=== PATIENT | female | born 1965 | race Caucasian/White ===

== ENCOUNTER 2019-02-25 08:30 | Emergency (ER) | payer SELFPAY ==
[~2019-02-25] VITALS: Ht 167.6 cm; Wt 58.5 kg
[2019-02-25 09:18] LABS: BASOPHILS # (AUTO) 0.1 /CMM (0.0-0.2); BASOPHILS % (AUTO) 0.9 % (0.0-2.0); EOSINOPHILS % (AUTO) 3.5 % (0.0-6.0); HEMATOCRIT 40 % (33-45); HEMOGLOBIN 13.5 g/dL (11.5-14.8); LYMPHOCYTES # (AUTO) 1.1 /CMM (0.8-4.8); LYMPHOCYTES % (AUTO) 19.7 % (20.0-44.0); MEAN CORPUSCULAR HGB CONC 34 g/dl (31.0-36.0); MEAN CORPUSCULAR VOLUME 89 fL (82-100); MONOCYTES # (AUTO) 0.2 /CMM (0.1-1.30); MONOCYTES % (AUTO) 3.6 % (2.0-12.0); NEUTROPHILS # (AUTO) 3.9 /CMM (1.8-8.9); NEUTROPHILS % (AUTO) 72.3 % (43.0-81.0); PLATELET COUNT (AUTO) 233 /CMM (150-450); RED BLOOD CELL COUNT(AUTO) 4.48 MIL/uL (4.0-5.2); WHITE BLOOD COUNT (AUTO) 5.4 K/uL (4.3-11.0)
[2019-02-25 09:30] LABS: CALCIUM, SERUM 9.5 mg/dL (8.5-10.1); CARBON DIOXIDE 31 mmol/L (21-32); CHLORIDE 106 mmol/L (98-107); CREATININE 0.7 mg/dL (0.6-1.3); GLUCOSE 103 mg/dL (74-106); POTASSIUM 3.8 mmol/L (3.5-5.1); SODIUM SERUM 143 mmol/L (136-145); UREA NITROGEN, BLOOD 16 mg/dL (7-18)
[2019-02-25] MEDS ORDERED: IV NS 0.9% 1,000 ML BAG IV ONE (09:30)
--- NOTE | 2019-02-25 09:30 | NUR ---
[facility] 89[facility] weakness and dizziness. On room air, breathing evenly and unlabored. connected to the monitor and pulse ox. kept comfortable, will continue to monitor accordingly.
[2019-02-25 09:40] LABS: ALANINE AMINOTRANSFERASE 19 U/L (12-78); ALBUMIN 3.9 g/dL (3.4-5.0); ALKALINE PHOSPHATASE 47 U/L (46-116); ASPARTATE AMINOTRANSFERASE 13 U/L (15-37); BILIRUBIN,DIRECT 0.3 mg/dL (0.0-0.2); BILIRUBIN,TOTAL 1.3 mg/dL (0.2-1.0); TOTAL PROTEIN, SERUM 7.2 g/dL (6.4-8.2)
[2019-02-25 10:59] LABS: APPEARANCE,URINE Clear (CLEAR); BILIRUBIN,URINE Negative (NEGATIVE); BLOOD, URINE Negative Ery/uL (NEGATIVE); COLOR,URINE Yellow (YELLOW); KETONES,URINE Negative (NEGATIVE); LEUKOCYTE ESTERASE ,URINE Negative (NEGATIVE); NITRITE, URINE Negative (NEGATIVE); PH,URINE 7.5 (5.0-8.0); PROTEIN,URINE Negative (NEGATIVE); UGLUCOSE Negative (NEGATIVE); UROBILINOGEN,URINE 0.2 EU/dL (0.2)
[2019-02-25 11:56] VITALS: BP 118/87
--- NOTE | 2019-02-25 11:56 | NUR ---
Patient discharged to home in stable condition. Written and verbal after care instructions given. Patient verbalizes understanding of instruction.IV removed. Catheter intact and site benign. Pressure and 4x4 applied to site. No bleeding noted.
== END 2019-02-25 11:58 | disposition home or self-care (01) ==
LOC: ER 08:32
DX: R42 Dizziness and giddiness (principal); M79.632 Pain in left forearm
CPT/HCPCS: 29125; 36415; 71045; 73090; 80048; 80076; 80305; 81001; 84484; 85025; 85730; 93005; 96360; 99284; J7030; 81000-TC

== ENCOUNTER 2019-04-04 08:43 | Emergency (ER) | payer MEDICAID ==
[~2019-04-04] VITALS: Ht 160 cm; Wt 56.7 kg
--- NOTE | 2019-04-04 08:51 | NUR ---
PT BIBRA FROM HOME C/O WEAKNES, DIZZINESS AND L SHOULDER PAIN, PT IS AAOX4, NOT IN RESPIRATORY DISTRESS ,HOOKED TO MONITOR, KEPT RESTED AND COMFORTABLE, WILL CONTINUE TO MONITOR.
--- NOTE | 2019-04-04 08:52 | NUR ---
AT BEDSIDE FOR EVAL.
--- NOTE | 2019-04-04 09:05 | NUR ---
IV LINE ESTABLISHED, BLOOD DRAWN AND SENT TO LAB.
[2019-04-04 09:18] LABS: CALCIUM, SERUM 9.4 mg/dL (8.5-10.1); CARBON DIOXIDE 30 mmol/L (21-32); CHLORIDE 105 mmol/L (98-107); CREATININE 0.7 mg/dL (0.6-1.3); GLUCOSE 106 mg/dL (74-106); POTASSIUM 3.7 mmol/L (3.5-5.1); SODIUM SERUM 143 mmol/L (136-145); UREA NITROGEN, BLOOD 13 mg/dL (7-18)
--- NOTE | 2019-04-04 09:24 | NUR ---
[employer] AT BEDSIDE FOR XRAY.
--- NOTE | 2019-04-04 09:33 | NUR ---
PT IS WHEELED TO CT SCAN VIA [facility].
[2019-04-04 09:35] LABS: ALANINE AMINOTRANSFERASE 18 U/L (12-78); ALKALINE PHOSPHATASE 49 U/L (46-116); ASPARTATE AMINOTRANSFERASE 12 U/L (15-37); BILIRUBIN,DIRECT 0.3 mg/dL (0.0-0.2); BILIRUBIN,TOTAL 1.6 mg/dL (0.2-1.0); TOTAL PROTEIN, SERUM 6.9 g/dL (6.4-8.2)
[2019-04-04 09:37] LABS: BASOPHILS % (AUTO) 0.9 % (0.0-2.0); EOSINOPHILS % (AUTO) 6.2 % (0.0-6.0); HEMATOCRIT 38 % (33-45); HEMOGLOBIN 12.9 g/dL (11.5-14.8); LYMPHOCYTES # (AUTO) 1.3 /CMM (0.8-4.8); LYMPHOCYTES % (AUTO) 37.5 % (20.0-44.0); MEAN CORPUSCULAR HGB CONC 34 g/dl (31.0-36.0); MEAN CORPUSCULAR VOLUME 89 fL (82-100); MONOCYTES # (AUTO) 0.1 /CMM (0.1-1.30); MONOCYTES % (AUTO) 3.8 % (2.0-12.0); NEUTROPHILS # (AUTO) 1.8 /CMM (1.8-8.9); NEUTROPHILS % (AUTO) 51.6 % (43.0-81.0); PLATELET COUNT (AUTO) 224 /CMM (150-450); WHITE BLOOD COUNT (AUTO) 3.4 K/uL (4.3-11.0)
--- NOTE | 2019-04-04 09:54 | NUR ---
IV removed. as per Pt's request. Catheter intact and site benign. Pressure and 4x4 applied to site. No bleeding noted.
[2019-04-04 10:49] VITALS: BP 121/77
--- NOTE | 2019-04-04 10:49 | NUR ---
Patient discharged to home in stable condition. Written and verbal after care instructions given. Patient verbalizes understanding of instruction.
== END 2019-04-04 10:50 | disposition home or self-care (01) ==
LOC: ER 08:49
DX: M54.12 Radiculopathy, cervical region (principal); R07.89 Other chest pain
CPT/HCPCS: 36415; 71045-TC; 72125-TC; 80048-TC; 80076-TC; 84484-TC; 85025-TC